=== PATIENT | female | born 1960 | race African-American/Black ===

== ENCOUNTER 2022-11-26 08:55 | Outpatient (REF) | payer SELFPAY | END 2022-11-26 08:56 | disposition home or self-care (01) | LOC: HO.MAMMO 08:55 | DX: Z12.31 Encounter for screening mammogram for malignant neoplasm of breast (principal) | CPT/HCPCS: 77063; 77067 ==

== ENCOUNTER → 2022-11-26 09:15 | Outpatient (BNV) | payer OTHER, SELFPAY | PROVIDERS: Visit Provider Radiology Diagnostic Radiology | DX: Z12.31 Encounter for screening mammogram for malignant neoplasm of breast (principal) | CPT/HCPCS: 77063; 77067 ==

== ENCOUNTER 2023-07-23 08:59 | Outpatient (AMB) | payer OTHER, SELFPAY ==
[2023-07-23 09:11] VITALS: BP 128/80; PULSE 78; O2SAT 97; BMI 36.2
--- NOTE | 2023-07-23 09:11 | A.OFFPC_ITS ---
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 Occurs?usually?in? the?evening?without?exertion. PMHx: Denies SurgHx: None FHx: Mom: Kidney disease. Dad: Uncertain. SocHx: Nonsmoker EtOH None. PFSH Medical History (Updated 07/23/23 @ 09:36 by Ramiro Rodriguez) No pertinent past medical history Surgical History (Updated 07/23/23 @ 09:18 by Sumi Bustos CMA) No pertinent past surgical history Social History (Updated 07/23/23 @ 09:21 by Sumi Bustos CMA) Household Members: None Both parents involved: No Caregiver staying overnight: No Housing: House Are you a primary child care director to a significant other at home: No Do you presently have visiting nurse or other home services: No Alcohol intake: never Patient Tobacco Use Status: Never used Tobacco e-Cigarette/Vaping Use: Never Used Use of substances other than those prescribed or required for medical reasons: No Have you been hit, kicked, punched, or otherwise hurt by someone within the past year? 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 1. Little interest or pleasure in doing things: not at all 2. Feeling down, depressed, or hopeless: not at all 3. Trouble falling or staying asleep, or sleeping too much: not at all 4. Feeling tired or having little energy: not at all 5. Poor appetite or overeating: not at all 6. Feeling bad about yourself - or that you are a failure or have let yourself or your family down: not at all 7. Trouble concentrating on things, such as reading the newspaper or watching television: not at all 8. Moving or speaking so slowly that other people could have noticed. Or the opposite - being so fidgety or restless that you have been moving around a lot more than usual: not at all 9. Thoughts that you would be better off or of hurting yourself in some way: not at all Total score: 0 Depression Screening Interpretation: Negative Depression Screening Done: Yes 11723 - PHQ-9 Billing: Yes Source: Developed by Drs. Sameer Davidson, Emily Joe, Ángel Hawkins and colleagues, with an educational kayleen from [employer]. Thrive Questionnaire Date Thrive assessed: 07/23/23 I am a: Patient What is your living situation today?: I have a steady place to live Within the past 12 months, did the food you bought not last and you didn't have the money to get more?: Never true Within the past 12 months, did you worry whether your food would run out before you got money to buy more?: Never true Do you have trouble paying for medicines?: No Do you have trouble getting transportation to medical appointments?: No Do you have trouble paying your heating and electricity bill?: No Do you have trouble taking care of your child, family member or friend?: No Do you have trouble with day-to-day activities such as bathing, preparing meals, shopping, managing finances, etc.?: No Are you currently unemployed and looking for a job?: No Are you interested in more education?: No THRIVE Score: 0 AUDIT C Alcohol Use Questionnaire (AUDIT-C) 1. How often do you have a drink containing alcohol?: Never 3. How often do you have six or more drinks on one occasion?: Never Total Score: 0 KLAUDIA-7 AMB Questionnaire KLAUDIA-7 Date KLAUDIA - 7 assessed: 07/23/23 Feeling nervous, anxious, or on edge: 0 = Not at all Not being able to stop or control worryin = Not at all Worrying too much about different things: 0 = Not at all Trouble relaxin = Not at all Being so restless that it is hard to sit still: 0 = Not at all Becoming easily annoyed or irritable: 0 = Not at all Feeling afraid as if something awful might happen: 0 = Not at all Total KLAUDIA-7 score (0-4 normal; 5-9 mild; 10-14 moderate; 15-21 severe): 0 Source: Developed by Drs. Sameer Davidson, Emily Joe, Ángel Hawkins and colleagues, with an educational kayleen from [employer]. KLAUDIA-7 Assessment Billing KLAUDIA-7 Assessment Tool: KLAUDIA-7 Assessment 03732 Review of Systems Const Denies chills, Denies fatigue, Denies fever(s), Denies headache(s) and Denies weakness ENT Denies dizziness and Denies headache(s) Card Denies chest pain, Denies lightheadedness, Denies dyspnea and Denies other (Palpitations) Resp Denies cough, Denies dyspnea, Denies wheezing and Denies other ( shortness of breath) Musc Denies numbness and Denies tingling Neuro Denies dizziness, Denies headache(s), Denies numbness, Denies tingling, Denies paresthesias and Denies weakness Psych Denies anxiety and Denies depression Endo Denies fatigue Aller/Immun Denies wheezing Physical exam (Primary Care) Vital Signs: Last Vital Signs Pulse 78 07/23/23 09:11 BP 128/80 07/23/23 09:11 Pulse Ox 97 07/23/23 09:11 Oxygen Delivery Method Room Air 07/23/23 09:11 BMI result Body Mass Index 36.2 Tobacco/Smoking Status: Tobacco use Status Tobacco use date assessed 07/23/23 07/23/23 09:27 Patient Tobacco Use Status Never used Tobacco 07/23/23 09:27 e-Cigarette/Vaping Use Never Used 07/23/23 09:27 PHQ-9: PHQ-9 Score PHQ-9: Total score 0 07/23/23 09:27 Depression Screening Interpretation: Negative Thrive Assessment: Date of Thrive Assessment Date Thrive assessed 07/23/23 07/23/23 09:27 Const General: no acute distress and well developed Nutritional Appearance: well nourished Orientation/consciousness: patient oriented x3 HENMT Head: Yes normocephalic and Yes atraumatic Eyes General: appearance normal, both eyes and all related structures Pupils: Equal, round and reactive pupils present EOM: EOMs intact bilaterally Resp Effort & Inspection: normal respiratory effort Auscultation: clear to auscultation bilaterally Cardio Rate: regular rate Rhythm: regular rhythm Heart sounds: S1 normal heart sound present, S2 normal heart sound present, no gallops, no murmurs and no rubs Neuro General: patient oriented x3 and gait normal Cranial nerves: Yes Equal, round and reactive pupils present Psych Affect: normal affect Assessment and Plan Assessment & Plan (1) Leg cramps: Code(s): R25.2 - Cramp and spasm Plan: Leg?cramps?and?particularly?left?medial?thigh. Hydrate?well?and?can?use?1?electrolyte?drink?per?day Gentle?stretching?and?demonstrated?stretch?for?medial?thigh?muscles Can?also?trial?OTC?magnesium?supplement If?not?improving?could?try?physical?therapy (2) Laboratory exam ordered as part of routine general medical examination: Code(s): Z00.00 - Encounter for general adult medical examination without abnormal findings Plan: Check?labs Orders: Orders Lipid Panel Today Z00.00 - Encounter for general adult medical examination without abnormal findings Microalbumin, Random (w Creat) Today I10 - Essential (primary) hypertension Magnesium Today R25.2 - Cramp and spasm Comprehensive [place]ullen. Panel Fast Today Z00.00 - Encounter for general adult medical examination without abnormal findings TSH reflex Free T4 Today Z00.00 - Encounter for general adult medical examination without abnormal findings UA and rflx microscopic Today Z00.00 - Encounter for general adult medical examination without abnormal findings Coding Level of Care Code New Pt Level 3 (70531) Diagnoses Leg cramps R25.2 Laboratory exam ordered as part of routine general medical examination Z00.00 Additional Codes KLAUDIA-7 Assessment Billing - KLAUDIA-7 Assessment Tool: KLAUDIA-7 Assessment 34237 ([id number])
== END 2023-07-23 09:52 | disposition home or self-care (01) ==
PROVIDERS: Visit Provider Family Medicine
DX: R25.2 Cramp and spasm (principal); Z00.00 Encounter for general adult medical examination without abnormal findings
CPT/HCPCS: 99203

== ENCOUNTER 2023-07-23 10:11 | Outpatient (REF) | payer OTHER, SELFPAY ==
[2023-07-23 11:23] LABS: Appearance Urine Clear; Color Urine Yellow; Glucose Urine UA Negative (Negative); Leukocyte Esterase Urine Negative (Negative); Nitrite Urine Negative (Negative); PH 5.5 (5.0-9.0); Specific Gravity - Urine 1.015 (1.005-1.025); Urine Blood Negative (Negative); Urine Ketones Trace mg/dL (Negative); Urine Protein Negative (Neg-Trace)
[2023-07-23 11:57] LABS: Creatinine Urine 94.26 mg/dL; Microalbum/Creatinine Ratio Ur 13.7 ug/mg cr (<30)
[2023-07-23 12:08] LABS: Alanine Aminotransferase 12 U/L (0-31); Albumin Level 4.1 g/dL (3.5-5.0); Alkaline Phosphatase 70 U/L (39-117); Anion Gap 10 (12-20); Aspartate Amino Transferase 14 U/L (5-31); Bilirubin Total 0.6 mg/dL (0.0-1.0); Blood Urea Nitrogen 14 mg/dL (9-16); Calcium 9.5 mg/dL (8.4-10.2); Carbon Dioxide 28 mmol/L (22-29); Chloride 109 mmol/L (96-108); Cholesterol 178 mg/dL (<200); Estimated Glomerular Filt Rate > 60; Glucose Fasting 83 mg/dL (60-99); HDL Cholesterol 56 mg/dL (>40); LDL Cholesterol Calculated 110 mg/dL (<100); Magnesium 2.3 mg/dL (1.6-2.6); Potassium 3.5 mmol/L (3.3-5.1); Sodium 143 mmol/L (135-145); TSH reflex Free T4 1.97 uIU/mL (0.32-4.0); Total Protein 7.7 g/dL (6.5-8.0); Triglycerides 62 mg/dL (<150)
== END 2023-07-23 10:12 | disposition home or self-care (01) ==
LOC: HO.WFDLDS 10:11
PROVIDERS: Visit Provider Family Medicine
DX: Z00.00 Encounter for general adult medical examination without abnormal findings (principal); I10 Essential (primary) hypertension; R25.2 Cramp and spasm
CPT/HCPCS: 36415; 80053; 80061; 81003; 82043; 82570; 83735; 84443

== ENCOUNTER 2023-10-07 07:54 | Outpatient (AMB) | payer OTHER, SELFPAY ==
--- NOTE | 2023-10-07 08:05 | A.OFFPC_ITS ---
Vital Signs 10/07/23 08:08 Height 5 ft 3 in Weight 201 lb 8 oz BMI 35.7 BP 124/84 Blood Pressure Location Lt brachial Position Sitting Respiration 16 Pulse 74 Pulse Source Pulse Oximeter Pulse Oximetry (%) 99 Oxygen Delivery Method Room Air Intake Visit Reasons: annual rescheduled from 09/30 Intake Note: Physical Towing Pilot Required: No Allergies No Known Allergies Allergy (Verified 10/07/23 08:05) Medication List - Last Reconciled 10/07/23 by Tanya Childs PA-C No Known Home Meds Tobacco use date assessed: 10/07/23 Dental Screening Dental Screen Date: 07/23/23 HPI annual rescheduled from 09/30 HPI Details Patient is a 63-year-old female who presents today for a physical exam. Normally follows with Dr. Leong. Recently seen here to establish care with him. Muscle cramps resolved. No acute concerns today. s/p right index finger tip amputation from a machine in . Mammo: Up-to-date, 11/21 Pap: overdue-declines Colonoscopy: overdue by 3 years Bone density: overdue Declines immunizations [facility] Medical History (Updated 07/23/23 @ 09:36 by Ramiro Rodriguez) No pertinent past medical history Surgical History (Updated 07/23/23 @ 09:18 by Sumi Bustos CMA) No pertinent past surgical history Social History (Updated 07/23/23 @ 09:21 by Sumi Bustos CMA) Household Members: None Both parents involved: No Caregiver staying overnight: No Housing: House Are you a primary care companion to a significant other at home: No Do you presently have visiting nurse or other home services: No Alcohol intake: never Patient Tobacco Use Status: Never used Tobacco e-Cigarette/Vaping Use: Never Used Special harley needs: No service: No Current occupational status: employed 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 Sameer Davidson, Emily Joe, Ángel Hawkins and colleagues, with an educational kayleen from [employer]. Physical exam (Primary Care) Vital Signs: Last Vital Signs Pulse 74 10/07/23 08:08 Resp 16 10/07/23 08:08 BP 124/84 10/07/23 08:08 Pulse Ox 99 10/07/23 08:08 Oxygen Delivery Method Room Air 10/07/23 08:08 BMI result Body Mass Index 35.7 Tobacco/Smoking Status: Tobacco use Status Tobacco use date assessed 10/07/23 10/07/23 08:06 Patient Tobacco Use Status Never used Tobacco 10/07/23 08:06 e-Cigarette/Vaping Use Never Used 10/07/23 08:06 Thrive Assessment: Date of Thrive Assessment Date Thrive assessed 07/23/23 10/07/23 08:06 Const Orientation/consciousness: patient oriented x3 HENMT Ears: hearing grossly normal bilaterally and TM's normal bilaterally General nose exam: No nasal polyps present Face and sinus: Yes sinuses nontender Mouth: Normal oral and palatal mucosa present Eyes Pupils: Equal, round and reactive pupils present EOM: EOMs intact bilaterally Neck Neck: Yes full ROM and Yes no lymphadenopathy Thyroid: Thyroid normal Chest Chest palpation & inspection: normal inspection of the chest Resp Auscultation: clear to auscultation bilaterally Cardio Rate: regular rate Rhythm: regular rhythm Heart sounds: S1 normal heart sound present and S2 normal heart sound present Peripheral pulses: Peripheral pulses 2+ throughout GI Other: Soft, nontender Auscultation: normal bowel sounds Rectal Exam - Female: deferred General: Yes no CVA tenderness Back/Spine/Pelvis Other: Nontender Back: no CVA tenderness Skin General skin exam: no rashes or lesions noted Neuro General: patient oriented x3, gait normal, CN's II-XI intact bilaterally and deep tendon reflexes 2+ bilaterally Cranial nerves: Yes Equal, round and reactive pupils present Motor exam (neuro): 5/5 motor strength present throughout Sensory Exam: double simultaneous stimulation for sensation normal Coordination: [id number] test normal and Romberg test negative Extrem General: Yes normal to inspection and Yes full ROM Psych Affect: normal affect Attitude: cooperative Thought process: Normal thought process present Thought content: Normal thought content present Insight: Good insight present (Psych) Judgement: Good judgement present (Psych) Results Reviewed Results Reviewed: Laboratory Tests 07/23/23 07/23/23 10:12 10:16 Sodium 143 Potassium 3.5 Chloride 109 H Carbon Dioxide 28 Anion Gap 10 L BUN 14 Creatinine 0.88 Estimated GFR > 60 Fasting Glucose 83 Calcium 9.5 Magnesium 2.3 Total Bilirubin 0.6 AST 14 ALT 12 Alkaline Phosphatase 70 Total Protein 7.7 Albumin 4.1 Triglycerides 62 Cholesterol 178 LDL Cholesterol, Calc 110 H HDL Cholesterol 56 TSH 1.97 Urine Color Yellow Urine Appearance Clear Urine pH 5.5 Ur Specific [place] 1.015 Urine Protein Negative Urine Glucose (UA) Negative Urine Ketones Trace Urine Blood Negative Urine Nitrite Negative Ur Leukocyte Esterase Negative Urine Creatinine 94.26 Urine Microalbumin 13.0 Microalb/Creat Ratio 13.7 RECOMMENDATION: Routine annual mammography screening. 1 year F/U This examination should not preclude the clinical evaluation of a suspicious palpable abnormality. This patient's information was entered into a reminder system with a target due date for their next mammogram. Assessment and Plan Assessment & Plan (1) Routine general medical examination at a 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
[2023-10-07 08:08] VITALS: BP 124/84; PULSE 74; RESP 16; O2SAT 99; BMI 35.7
== END 2023-10-07 09:22 | disposition home or self-care (01) ==
PROVIDERS: Visit Provider Physician Assistant
DX: Z00.00 Encounter for general adult medical examination without abnormal findings (principal)
CPT/HCPCS: 99396